=== PATIENT | male | born 1995 | race Asian ===

== ENCOUNTER 2020-06-20 07:59 | Day surgery (SDC) | payer OTHER ==
[~2020-06-20] VITALS: Ht 175.3 cm; Wt 77.1 kg
[~2020-06-20 07:59] MED LIST: ALPR0.5T3 PO; CLON-412 PO; FLUO20CA22 PO; NS 1,000 ML IV ONE
[2020-06-20] MEDS ORDERED: fentaNYL 100 MCG/2 ML INJECTION (J3010) As Ordered ONE (09:02)
[2020-06-20] MEDS ORDERED: propofoL 200 MG/20 ML VIAL As Ordered ONE (09:08)
[2020-06-20] MEDS ORDERED: LIDOCAINE 2% 100MG/5ML SDV (FOR ANES.) As Ordered ONE (09:08)
--- NOTE | 2020-06-20 09:17 | ROOR ---
Patient Name: Sebastian Lamas Procedure Date: 06/20/2020 8:59 AM Date of : 1995 Age: 24 Room: [facility] Gender: Male Note Status: Finalized Procedure: Upper Endoscopy + Biopsies Indications: Epigastric abdominal pain, Diarrhea, Nausea with vomiting Providers: Edgar Rivers MD Referring MD: SHIKHA MCKEON MD Requesting Provider: Medicines: Monitored Anesthesia Care Complications: No immediate complications. Procedure: Pre-Anesthesia Assessment: - The heart rate, respiratory rate, oxygen saturations, blood pressure, adequacy of pulmonary ventilation, and response to care were monitored throughout the procedure. The Endoscope was introduced through the mouth, and advanced to the second part of duodenum. The upper GI endoscopy was accomplished without difficulty. The patient tolerated the procedure well. Findings: The Z-line was regular and was found 44 cm from the incisors. No other significant abnormalities were identified in a careful examination of the stomach. Biopsies were taken with a cold forceps in the gastric antrum for Helicobacter pylori testing. The exam of the duodenum was otherwise normal. Biopsies for histology were taken with a cold forceps in the first portion of the duodenum for evaluation of celiac disease. The exam was otherwise without abnormality. Impression: - Z-line regular, 44 cm from the incisors. - The examination was otherwise normal. - Biopsies were taken with a cold forceps for Helicobacter pylori testing. - Biopsies were taken with a cold forceps for evaluation of celiac disease. - The examination was otherwise normal. Recommendation: - Patient has a contact number available for emergencies. The signs and symptoms of potential delayed complications were discussed with the patient. Return to normal activities tomorrow. Written discharge instructions were provided to the patient. - High fiber diet. - Discharge patient to home. - Follow an antireflux regimen. - Continue present medications. - Await pathology results. - Telephone GI clinic for pathology results in 1 week. - Return to referring physician. - The findings and recommendations were discussed with the patient. Edgar Rivers MD Edgar Rivers MD 06/20/2020 9:16:37 AM Electronically signed by Edgar Rivers MD Number of Addenda: 0 Note Initiated On: 06/20/2020 8:59 AM Estimated Blood Loss: Estimated blood loss: none.
--- NOTE | 2020-06-20 09:31 | ROOR ---
Patient Name: Sebastian Lamas Procedure Date: 06/20/2020 8:59 AM Date of : 1995 Age: 24 [facility] Note Status: Finalized Procedure: Total Colonoscopy to Cecum + Bx. To r/o Microscopic Colitis Indications: Lower abdominal pain, Clinically significant diarrhea of unexplained origin Providers: Edgar Rivers MD Referring MD: SHIKHA MCKEON MD Requesting Provider: Medicines: Monitored Anesthesia Care Complications: No immediate complications. Procedure: Pre-Anesthesia Assessment: - The heart rate, respiratory rate, oxygen saturations, blood pressure, adequacy of pulmonary ventilation, and response to care were monitored throughout the procedure. The Colonoscope was introduced through the anus and advanced to the cecum, identified by appendiceal orifice and ileocecal valve. The colonoscopy was performed without difficulty. The patient tolerated the procedure well. The quality of the bowel preparation was excellent. Findings: The perianal and digital rectal examinations were normal. Non-bleeding internal hemorrhoids were found during retroflexion. The hemorrhoids were small and Grade I (internal hemorrhoids that do not prolapse). No other significant abnormalities were identified in a careful examination of the remainder of the colon. Biopsies for histology were taken with a cold forceps from the ascending colon, transverse colon and descending colon for evaluation of microscopic colitis. The exam was otherwise without abnormality. Impression: - Non-bleeding internal hemorrhoids. - The examination was otherwise normal. - Biopsies were taken with a cold forceps from the ascending colon, transverse colon and descending colon for evaluation of microscopic colitis. - The exam was otherwise normal to the cecum. Recommendation: - Patient has a contact number available for emergencies. The signs and symptoms of potential delayed complications were discussed with the patient. Return to normal activities tomorrow. Written discharge instructions were provided to the patient. - High fiber diet. - Discharge patient to home. - Continue present medications. - Await pathology results. - Telephone GI clinic for pathology results in 1 week. - Return to referring physician. - Repeat colonoscopy at age 48 for screening purposes. - The findings and recommendations were discussed with the patient. Edgar Rivers MD Edgar Rivers MD 06/20/2020 9:30:36 AM Electronically signed by Edgar Rivers MD Number of Addenda: 0 Note Initiated On: 06/20/2020 8:59 AM Estimated Blood Loss: Estimated blood loss: none.
[2020-06-20 10:08] VITALS: BP 118/75
== END 2020-06-20 10:07 | disposition home or self-care (01) ==
LOC: M OPP 07:59
PROVIDERS: ATTEND Internal Medicine Gastroenterology
DX: K64.0 First degree hemorrhoids (principal); R10.30 Lower abdominal pain, unspecified; R19.7 Diarrhea, unspecified; R10.13 Epigastric pain; R11.2 Nausea with vomiting, unspecified
CPT/HCPCS: 43239; 45380; 88305; J3010